=== PATIENT | male | born 1945 | race Two or more races ===

== ENCOUNTER → 2017-09-21 | Outpatient (CLI) | payer OTHER | LOC: BHFA 10:00 | PROVIDERS: ATTEND Internal Medicine Cardiovascular Disease | DX: Z82.49 Family history of ischemic heart disease and other diseases of the circulatory system (principal) ==

== ENCOUNTER 2017-12-19 11:31 | Emergency (ER) | payer OTHER ==
[2017-12-19] MEDS ORDERED: TDAP ADULT 0.5 ML INJ (BOOSTRIX) IM ONE (12:31)
--- NOTE | 2017-12-19 13:07 | EDPHY ---
H & P Smoking Status: Never smoked Time Seen by Provider: 12/19/17 11:55 HPI/ROS: CHIEF COMPLAINT: Laceration right hand HISTORY OF PRESENT ILLNESS: 72-year-old male presents to the emergency department with right hand laceration. The incident happened at 9:30 p.m. Last night. He initially applied Super glue and then came to the emergency department for evaluation. He is unsure of his last tetanus shot. He is right- hand dominant. Describes the pain as mild. He did not come to the emergency department last night because of the road conditions. Patient is on Pradaxa. ROS: He denies numbness or tingling in his fingers, retained foreign body. ( Allyson Navarrete) Past Medical/Surgical History: Coronary artery disease, stents, bypass (Allyson Navarrete) Social History: Patient is a (Allyson Navarrete) Physical Exam: On examination patient has a 2 cm laceration the dorsal aspect of the right 4th finger between the MCP joint and the PIP joint. No tendon injury identified. No active bleeding noted. The other fingers do not appear injured. He has normal sensation to light touch with normal 2 point discrimination. (Allyson Navarrete) Constitutional: Initial Vital Signs Temperature (C) 36.6 C 12/19/17 11:35 Heart Rate 63 12/19/17 11:35 Respiratory Rate 16 12/19/17 11:35 Blood Pressure 149/73 H 12/19/17 11:35 O2 Sat (%) 97 12/19/17 11:35 O2 Delivery Mode Room Air Allergies/Adverse Reactions: No Known Allergies Allergy (Verified 12/19/17 11:40) Home Medications: Medication Instructions Recorded Aspirin EC [Aspirin EC 81 mg (*)] 81 mg PO HS 08/02/14 Metoprolol Succinate Xr [Toprol Xl 25 mg PO DAILY 08/02/14 25 mg (*)] Simvastatin [Zocor 40 mg] 40 mg PO HS 08/02/14 Dabigatran Etexilate Mesyl 150 mg PO DAILY 12/19/17 [Pradaxa 150 MG (*)] MDM/Departure - MDM Procedures: Laceration repair. Verbal consent was obtained from the patient. The 2 cm laceration on the right 4th finger was anesthetized using 1% lidocaine with epinephrine. The wound was irrigated with saline, draped and explored to its base with a gloved finger. There were no deep structures involved. No tendon injury was identified. The wound was repaired with 5 0 Ethilon, 5 sutures. The wound repair was simple. The procedure was performed by myself. (Allyson Navarrete) Medications Given: Discontinued Medications Diphtheria/Tetanus/Acell Pertussis (Boostrix) 0.5 ml IM .ONCE ONE Stop: 12/19/17 12:32 Last Admin: 12/19/17 12:42 Dose: 0.5 ml ED Course/Re-evaluation: 72-year-old male presents to the emergency department with right hand injury. The wound is 12 hr old. I just discussed the risk of infection associated with closing the wound today. This was discussed with Dr. Babar Sotelo, secondary supervising physician, who also evaluated the patient. He recommends closing the wound. The patient had a large amount of dried Super glue on his finger that needed to be removed prior to repair. He tolerated this quite well. Patient was given strict wound care precautions. His tetanus shot was updated. (Allyson Navarrete) I also saw the patient in the emergency department. The wound was covered with super glue. We talked about him cutting his hand last night on glass. The wound does not appear to have any evidence of foreign body or infection. We discussed increased risk of infection because of delayed closure. Patient expresses understanding and agreed (Babar Sotelo) - Depart Disposition: Home, Routine, Self-Care Clinical Impression: Laceration of right ring finger Condition: Good Instructions: Care For Your Stitches (ED), Laceration (ED), Acute Wounds (ED) Additional Instructions: Wound Care Follow-Up: Removal of sutures in 10 days. Suture removal is complimentary in uncomplicated cases. Infection or abnormal findings would require reevaluation by the MD. In that case, you may be billed. Return if you notice any signs or symptoms of infection such as redness, swelling, increased pain, fever, purulent drainage. Your given a tetanus shot today in the emergency department. Please document this for your records. Referrals: Donna Hampton MD [Primary Care Provider] - As per Instructions
[2017-12-28 09:20] VITALS: BP 138/74
== END 2017-12-19 13:29 | disposition home or self-care (01) ==
DX: S61.214A Laceration without foreign body of right ring finger without damage to nail, initial encounter (principal); I25.10 Atherosclerotic heart disease of native coronary artery without angina pectoris; Z23 Encounter for immunization; Z79.82 Long term (current) use of aspirin; X58.XXXA Exposure to other specified factors, initial encounter